=== PATIENT | female | born 1975 | race Caucasian/White ===

== ENCOUNTER 2017-03-30 07:35 | Day surgery (SDC) | payer BC ==
[2017-03-29 17:38] VITALS: BMI 29.2
[2017-03-30] MEDS ORDERED: TOBRA 0.3%/DEXAMETH 0.1% OPHTHALMIC SUSP 2.5 ML BTL ONE (07:47)
[2017-03-30] MEDS ORDERED: ACETAMINOPHEN 325 MG TABLET (FP) PO PRN (08:26)
[2017-03-30] MEDS ORDERED: MIDAZOLAM HCL 2 MG/2 ML SINGLE DOSE VIAL ONE (08:37)
[2017-03-30] MEDS ORDERED: methylPREDNISolone NA SUCC 40 MG/1 ML VIAL ONE (08:42)
[2017-03-30] MEDS ORDERED: PHENYLEPHRINE 2.5% OPHTH SOLN 15 ML BOTTLE ONE (08:43)
[2017-03-30] MEDS ORDERED: TETRACAINE 0.5% OPHTH SOLN 2 ML BOTTLE ONE (08:43)
[2017-03-30] MEDS ORDERED: LIDOCAINE HCL/EPINEPHRINE/PF 20 ML VIAL ONE (08:43)
[2017-03-30] MEDS ORDERED: LIDOCAINE 1% P/F 10 MG/ML VIAL ONE (08:43)
[2017-03-30] MEDS ORDERED: POVIDONE-IODINE 5% OPHTHALMIC PREP 30 ML SOLUTION ONE (08:43)
[2017-03-30] MEDS ORDERED: LACTATED RINGERS SOLUTION 1,000 ML IV SCH (09:45)
[2017-03-30] MEDS ORDERED: ACETAMINOPHEN 325 MG TABLET (FP) ONE (09:54)
[2017-03-30 10:05] VITALS: TEMP 98.2
[2017-03-30 10:32] VITALS: BP 120/66; PULSE 66
[2017-03-30] MEDS ORDERED: ONDANSETRON 4 MG/2 ML VIAL IVPUSH PRN (11:47)
--- NOTE | 2017-03-31 09:56 | OP ---
DATE OF OPERATION: 03/30/2017 PREOPERATIVE DIAGNOSIS: Pterygium, left eye. POSTOPERATIVE DIAGNOSIS: Pterygium, left eye. PROCEDURE: Pterygium excision with conjunctiva free autograft, left eye. ANESTHESIA: Topical with sedation. SPECIMENS: Pterygium, left eye. ESTIMATED BLOOD LOSS: Less than 1 mL COMPLICATIONS: None. DESCRIPTION OF PROCEDURE: The patient was identified in the holding area. After all risks, benefits, and alternatives were explained to the patient, informed consent was obtained. The left eye was marked with a marking pen. The patient entered the operating room on an eye stretcher. After a formal timeout was performed, topical tetracaine eye drops were instilled onto the left eye. The left eye was then prepped and draped in the usual sterile fashion. An eyelid speculum was placed beneath the eyelids of the left eye. Topical tetracaine eye drops were then applied to the left eye, followed by lidocaine jelly. A 7-0 double-armed traction sutures were placed at the superior and inferior limbus. A nasal pterygium was identified and marked with a marking pen and then completely excised from the cornea as well as the conjunctiva, and the pterygium was submitted for specimen. The conjunctiva was undermined using Deric scissors and 0.12 forceps. The pterygium was excised using a crescent blade and 0.12 forceps. All excess Tenon capsule was then excised, and the scleral bed was flat. Bipolar cautery was used to achieve hemostasis. The graft site was then measured and found to be 6 mm x 6 mm in size. Attention was then turned to the superior conjunctiva where a free autograft was excised of 6 mm x 6 mm in size. It was rotated down and limbus to limbus were matched. The donor graft was secured to the host graft site using interrupted 7-0 Vicryl sutures. Tisseel brand glue was then used to fix the conjunctiva graft to the scleral bed. All excess glue was removed from the eye. The donor was noted to be completely adherent to the graft site without any free movement and all edges closed. The cornea was maintained moistened using balanced saline solution. Topical eye drops and antibiotic ointment were then instilled onto the left eye. The traction sutures were removed from the eye. The speculum was removed from the eye. The left eye was patched and shielded. The patient tolerated the procedure well and left the operating room in stable condition to follow up in the eye clinic the next morning at 9:00. MAXIMUS THOMPSON M.D. [id number]
--- NOTE | 2017-04-01 10:25 | PATH ---
Surgical Pathology Report Patient Name: CLAUDIA WALLS [facility]. Rec. #: [id number] /Age/Gender: 1975 (Age: 41) / F Account: [id number] Location: [facility] Taken: 03/30/2017 Received: 03/30/2017 Reported: 04/01/2017 Physicians: Karen Castillo Specimen(s) Received LEFT EYE PTERYGIUM Clinical History Pterygium left eye Final Diagnosis CONJUNCTIVA, LEFT EYE, EXCISION: CONJUNCTIVA WITH DEGENERATIVE CHANGES CONSISTENT WITH PTERYGIUM. Electronically Signed Álvaro Williamson M.D. Gross Description Received in formalin, labeled "left eye pterygium" is a garcia, irregular portion of soft tissue measuring 0.7 cm. in greatest dimension. The specimen is submitted in toto in one cassette. 03/31/201703/31/2017
== END 2017-03-30 11:35 | disposition home or self-care (01) ==
LOC: FASU 07:35
PROVIDERS: ATTEND Ophthalmology
PROC: 08U907Z Supplement Left Cornea with Autologous Tissue Substitute, Open Approach (ICD-10-PCS; principal; 2017-03-30 09:01)
DX: H11.002 Unspecified pterygium of left eye (principal)
CPT/HCPCS: 84703; 88304-TC